=== PATIENT | female | born 1950 | race Caucasian/White ===

== ENCOUNTER → 2023-08-31 09:15 | Outpatient (REF) | payer OTHER, SELFPAY | LOC: HWRAD 09:15 | PROVIDERS: ATTENDING PHYSICIAN Urology; FAMILY PHYSICIAN Internal Medicine | DX: C67.2 Malignant neoplasm of lateral wall of bladder (principal); N32.89 Other specified disorders of bladder; N13.5 Crossing vessel and stricture of ureter without hydronephrosis | CPT/HCPCS: 71260; 74178; Q9967 ==

== ENCOUNTER 2024-02-23 18:18 | Emergency (ER) | payer OTHER, SELFPAY ==
[2024-02-23 18:24] VITALS: BP 160/82
[2024-02-23 18:49] LABS: % Basophils 0.5 % (0-2); % Eosinophils 1.2 % (0-6); % Immature Granulocytes 0.3 % (0-0.5); % Lymphocytes 43.7 % (20.5-51.1); % Monocytes 8.3 % (1.7-9.3); Absolute Eosinophils 0.1 10^3/uL (0-0.7); Absolute Lymphocytes 3.4 10^3/uL (1.2-3.4); Absolute Monocytes 0.7 10^3/uL (0.1-0.6); Absolute Neutrophils 3.6 10^3/uL (1.4-6.5); Hematocrit 39.4 % (37.0-47.0); Hemoglobin 13.2 g/dL (12.0-16.0); Mean Corp Hgb Conc. 33.5 g/dL (33.0-37.0); Mean Corpuscular Hgb 26.9 pg (27.0-31.0); Mean Corpuscular Volume 80.4 fL (81.0-99.0); Mean Platelet Volume 9.6 fL (7.4-10.4); Nucleated Red Blood Cells % 0 %; Platelet Count 259 10^3/uL (130-400); White Blood Cell Count 7.8 10^3/uL (4.8-10.8)
[2024-02-23 18:57] LABS: ALT (SGPT) 16 U/L (0-35); AST (SGOT) 21 U/L (14-36); Albumin 4.4 g/dl (3.5-5.0); Alkaline Phosphatase 86 U/L (38-126); Blood Urea Nitrogen 15 mg/dl (7-17); Calcium 9.7 mg/dl (8.4-10.2); Carbon Dioxide 22 mmol/L (22-30); Chloride 105 mmol/L (98-107); Glucose 140 mg/dl (70-99); Potassium 4.4 mmol/L (3.5-5.1); Sodium 144 mmol/L (135-145); Total Bilirubin 0.1 mg/dl (0.2-1.3); Total Protein 7.5 g/dl (6.3-8.2); eGFR > 60.00
[2024-02-23 19:08] LABS: Troponin I < 0.012 ng/ml
[2024-02-23 21:47] VITALS: BP 170/79
[2024-02-23 22:01] LABS: Urine Albumin Negative (Neg - Trace); Urine Bilirubin Negative (Negative); Urine Character Clear (Clear); Urine Color Yellow; Urine Glucose Negative (Negative); Urine Ketone Negative (Negative); Urine Leukocyte Negative (Negative); Urine Nitrite Positive (Negative); Urine Occult Blood Trace (Negative); Urine Urobilinogen Negative (Neg - 1+); Urine pH 6.5 (5.0-9.0)
[2024-02-23 22:06] LABS: Urine Squamous Cell 0-2 /LPF (Few)
[2024-02-23 22:08] LABS: Urine Red Blood Cell 0-2 /HPF (0-2)
[2024-02-23 22:09] LABS: Urine Bacteria Moderate (Negative)
[2024-02-23 22:32] VITALS: BP 145/83
--- NOTE | 2024-02-23 23:20 | ED.GENMED ---
History of Present Illness
General
Chief Complaint: Chest Pain
Source: patient and family
Exam Limitations: none
Time Seen by Provider: 02/23/24 21:21
History of Present Illness
History of Present Illness:
Patient to ED with complaint of chest pain and cough for the past few days. No fever/chills. No SOB. Brought to ED by grandson for eval
Past History
Past History
ED Past Medical History: Cancer (Bladder cancer), GERD, HTN, Hypercholesterolemia and Other (Kidney stones)
ED Past Surgical History: Urological
Social History
Tobacco: Non-smoker
Alcohol: None
Drug: None
Living: with family
Employment: Retired
Phy Exam
General Physical Exam
General Presentation: well appearing and no apparent distress
General age: appears stated age
General Skin: warm and dry
General Habitus: normal
General Mental: alert
ENT Exam
ENT Exam: EOMI, TM's normal, pharynx normal, neck supple, normocephalic and swallowing well
Eye Exam
Eye Exam: PERRL, EOMI, conjunctiva normal and globe normal
Cardiovascular Exam
Cardiovascular Exam: regular rate/rhythm and no edema
Pulmonary Exam
Pulmonary Exam: lungs clear and no respiratory distress
Neurological Exam
Neurological Exam: alert, CN II-XII intact, no motor deficits, no sensory deficits and speech normal
Musculoskeletal Exam
Musculoskeletal Exam: full ROM and neuro vasc intact
Skin Exam
Skin Exam: normal color, warm/dry and no rash
Psychiatric Exam
Psychiatric Exam: normal mood/affect
Scores
Heart Score for Chest Pain Patients
STEMI patient?: Not applicable
Course
Orders/Labs/Results
Orders:
Orders
02/23/24 18:20
Electrocardiogram (*1) Urgent
Reason for Study: Chest Pain
EKG- Treatment ONCE
02/23/24 18:33
Complete Blood Count/With Diff Urgent
Comprehensive Metabolic Panel Urgent
Troponin I Urgent
02/23/24 21:54
Urinalysis Reflex To Culture Urgent
Date Specimen was Collected: 02/23/24
Time Specimen was Collected: 21:52
Urine Microscopic Reflex Cult Urgent
Urine Culture Urgent
GLORIA Source: U
Specimen Description:
Date Specimen was Collected: 02/23/24
Time Specimen was Collected: 21:52
02/23/24 21:55
CT Head W/o Iv Contrast Urgent
Comment:
Reason For Exam: dizziness
02/23/24 22:01
CXR2 [CR Chest - 2 Views ] Urgent
Comment:
Reason For Exam: cp
02/23/24 23:17
Meclizine [Antivert] 25 mg PO NOW STA
Abnormal Lab Results
02/23/24 02/23/24
18:33 21:54
MCV 80.4 L fL
(81.0-99.0)
MCH 26.9 L pg
(27.0-31.0)
Absolute Monos (auto) 0.7 H 10^3/uL
(0.1-0.6)
Glucose 140 H mg/dl
(70-99)
Total Bilirubin 0.1 L mg/dl
(0.2-1.3)
Ur Occult Blood Reflex Trace A
(Negative)
Urine Nitrite (Reflex) Positive A
(Negative)
Urine Bacteria (Reflex) Moderate A
(Negative)
02/23/24 18:33
02/23/24 18:33
Vital Signs
Initial and Last Documented VS:
Initial Vital Signs
Temp Pulse Resp BP Pulse Ox
98.1 F 89 18 160/82 100
02/23/24 18:24 02/23/24 18:24 02/23/24 18:24 02/23/24 18:24 02/23/24 18:24
Last Documented Vital Signs
Temp Pulse Resp BP Pulse Ox
98.1 F 64 19 129/68 99
02/23/24 18:24 02/23/24 23:53 02/23/24 23:53 02/23/24 23:53 02/23/24 23:53
*Radiology
Radiology exam reviewed: radiology read reviewed
*Pulse Oximetry
Patient hypoxic: no
*Critical Care Note
Total Time (30-74mins, 75-104mins- exclusive of procedures): Not Applicable
ED Attending Note
-
Portions of this chart may have been created with voice recognition software.� Occasional wrong word or��sound alike� substitutions may have occurred due to the inherent limitations of voice recognition software.
Discharge Plan
Departure
Patient Disposition: Home (Routine Discharge)
Date of Disposition: 02/23/24
Time of Disposition: 23:17
Patient with high blood pressure during this ER visit?: No
Condition: Good
Covid-19: Not Applicable
Discharge Problem:
Dizziness
Instructions: Dizziness
Prescriptions:
New
meclizine 25 mg tablet
25 mg PO TID PRN (Reason: dizziness) Qty: 12 0RF
No Action
atorvastatin 10 MG tablet
10 mg PO DAILY
Patient Comments:
with language line
pantoprazole 40 MG tablet,delayed release (DR/EC)
40 mg PO DAILY
Patient Comments:
with language line
acetaminophen 500 mg Tablet
500 mg PO Q6H PRN (Reason: mild pain)
Referrals:
Saud Dennis MD [Family Provider] - Tomorrow
Interventions
Interventions:
*Risk Screen - Suicide Last Done: 02/23/24 18:24
*General Assessment Last Done: 02/23/24 18:24
*Neglect/Abuse Screening Last Done: 02/23/24 18:24
*ED COVID-19 Vaccine History Last Done: 02/23/24 18:24
*Nursing Disposition Last Done: 02/23/24 23:53
ED- Cardiac Assessment Last Done: 02/23/24 21:55
Discharge Date and Time
Discharge Date/Time: 02/23/24 23:54
Print Language: Emirati
[2024-02-23] MEDS: ANTIVERT 25 MG PO (23:26)
[2024-02-23 23:51] VITALS: BP 129/68
[2024-02-23 23:53] VITALS: BP 129/68
== END 2024-02-23 23:54 | disposition home or self-care (01) ==
LOC: EMR 18:18
PROVIDERS: Emergency Medicine; Nurse Practitioner; EMERGENCY PHYSICIAN Emergency Medicine; FAMILY PHYSICIAN Internal Medicine
DX: R42 Dizziness and giddiness (principal)
CPT/HCPCS: 99285; 70450; 71046; 80053; 81003; 81015; 84484; 85025; 87086; 93005

== ENCOUNTER → 2024-02-29 13:43 | Outpatient (REF) | payer OTHER, MEDICARE, SELFPAY | LOC: HWRAD 13:43 | PROVIDERS: ATTENDING PHYSICIAN Urology; FAMILY PHYSICIAN Internal Medicine | DX: R31.0 Gross hematuria (principal); N28.1 Cyst of kidney, acquired; N13.5 Crossing vessel and stricture of ureter without hydronephrosis; N32.89 Other specified disorders of bladder | CPT/HCPCS: 71260; 74170; Q9967 ==

== ENCOUNTER → 2024-09-05 07:58 | Outpatient (REF) | payer MEDICARE, OTHER, SELFPAY | LOC: RAD 07:58 | PROVIDERS: ATTENDING PHYSICIAN Urology; FAMILY PHYSICIAN Internal Medicine | DX: N13.5 Crossing vessel and stricture of ureter without hydronephrosis (principal) | CPT/HCPCS: 71260; 74170; Q9967 ==

== ENCOUNTER → 2024-09-29 09:55 | Outpatient (REF) | payer MEDICARE, OTHER, SELFPAY | LOC: HWRAD 09:55 | PROVIDERS: ATTENDING PHYSICIAN Urology; FAMILY PHYSICIAN Internal Medicine | DX: C67.2 Malignant neoplasm of lateral wall of bladder (principal); R22.1 Localized swelling, mass and lump, neck | CPT/HCPCS: 76536 ==

== ENCOUNTER → 2024-10-04 07:49 | Outpatient (REF) | payer MEDICARE, OTHER, SELFPAY | LOC: MRI 07:49 | PROVIDERS: ATTENDING PHYSICIAN Urology; FAMILY PHYSICIAN Internal Medicine | DX: K76.9 Liver disease, unspecified (principal); C67.2 Malignant neoplasm of lateral wall of bladder | CPT/HCPCS: 74183; A9575 ==

== ENCOUNTER 2024-10-17 11:56 | Emergency (ER) | payer MEDICARE, OTHER, SELFPAY ==
[2024-10-17 12:02] VITALS: BP 152/89
[2024-10-17 12:57] LABS: COVID-19 Antigen Negative (Negative)
--- NOTE | 2024-10-17 16:22 | ED.GENMED ---
History of Present Illness
General
Chief Complaint: Cold/Flu/URI Symptoms
Source: patient
Exam Limitations: none
Time Seen by Provider: 10/17/24 15:57
Nursing documentation reviewed up to this point in time: agreed with
History of Present Illness
History of Present Illness:
Patient is a 74-year-old female history of bladder cancer, pulmonary embolism on Eliquis presents to the ER for evaluation of cough. Patient has had intermittent cough for the past 2 months however over the past 1 week it has gotten progressively
worse. She is now unable to sleep at that does complain of shortness of breath. She also feels discomfort in her chest region from much.
No other sick contacts at home. She denies any fever or chills.
She does not smoke
Past History
Past History
ED Past Medical History: Cancer (Bladder cancer), GERD, HTN, Hypercholesterolemia and Other (Kidney stones)
ED Past Surgical History: Urological
Social History
Tobacco: Non-smoker
Alcohol: None
Drug: None
Living: with family
Employment: Retired
Review of Systems
Review of Systems
Allergies reviewed?: Yes
Other source history: family
All Other Systems: ROS reviewed and negative except as documented in HPI and ROS
Phy Exam
General Physical Exam
General Presentation: no apparent distress
General age: appears stated age
General Skin: warm and dry
General Habitus: elderly
General Mental: alert
General Hydration: appears well hydrated
Cardiovascular Exam
Cardiovascular Exam: regular rate/rhythm, no murmur and normal peripheral pulses
Pulmonary Exam
Pulmonary Exam: lungs clear and no respiratory distress
Neurological Exam
Neurological Exam: alert and oriented x3
Musculoskeletal Exam
Musculoskeletal Exam: full ROM
Skin Exam
Skin Exam: normal color and warm/dry
Psychiatric Exam
Psychiatric Exam: normal mood/affect
Course
Orders/Labs/Results
Orders:
Orders
10/17/24 12:06
Electrocardiogram (*1) Urgent
Reason for Study: Shortness of Breath
10/17/24 12:07
EKG- Treatment ONCE
10/17/24 12:22
COVID-19 Antigen Urgent
Source: Nasal Swab
INF RAPID [Influenza A+B Rapid Molecular] Urgent
GLORIA Source: Nasal Swab
Specimen Description:
10/17/24 16:22
Albuterol Nebs [Ventolin Nebules] 2.5 mg INH R NOW STA
10/17/24 16:57
Complete Blood Count/With Diff Urgent
Comprehensive Metabolic Panel Urgent
Troponin I Urgent
10/17/24 18:01
D-Dimer Urgent
10/17/24 19:07
CT Chest PE Study Urgent
Comment:
Reason For Exam: cough /sob
10/17/24 20:50
Doxycycline [Vibramycin] 100 mg PO NOW STA
10/17/24 20:54
Dexamethasone Pf [Decadron] 10 mg PO NOW STA
Abnormal Lab Results
10/17/24 10/17/24
16:57 18:01
Hgb 11.7 L g/dL
(12.0-16.0)
Hct 34.7 L %
(37.0-47.0)
MCV 79.4 L fL
(81.0-99.0)
MCH 26.8 L pg
(27.0-31.0)
D-Dimer 0.89 H ug/mlFEU
(0.00-0.50)
Chloride 109 H mmol/L
(98-107)
10/17/24 16:57
10/17/24 16:57
Vital Signs
Initial and Last Documented VS:
Initial Vital Signs
Temp Pulse Resp BP Pulse Ox
98.8 F 80 22 152/89 97
10/17/24 12:02 10/17/24 12:02 10/17/24 12:02 10/17/24 12:02 10/17/24 12:02
Last Documented Vital Signs
Temp Pulse Resp BP Pulse Ox
98.1 F 67 18 110/80 95
10/17/24 19:48 10/17/24 19:48 10/17/24 19:48 10/17/24 19:48 10/17/24 19:49
Certified Orthotist Practice Manager consulted with Physician
Certified Orthotist Practice Manager consulted with physician?: Yes (noh )
MDM/Problems Addressed
Differential Diagnosis Includes:
Not limited to viral syndrome, bronchitis, pneumonia
MDM/Problems Addressed:
As documented patient is a 74-year female with history of bladder cancer PE presents with cough for the past month getting worse. She does complain of minimal shortness of breath. CAT scan shows near complete resolution of previously seen
bilateral PE increased left lower lobe basilar consolidation may reflect atelectasis and or pneumonia. With presenting symptoms of cough as discussed ED physician will treat for pneumonia with doxycycline. Patient is well-appearing nonhypoxic and
afebrile stable for discharge home. Discussed close outpatient follow-up.
*Pulse Oximetry
SaO2: 97
Oxygen Mode of Delivery: Room air
Patient hypoxic: no (97%ra)
*Critical Care Note
Total Time (30-74mins, 75-104mins- exclusive of procedures): Not Applicable
ED Attending Note
-
Portions of this chart may have been created with voice recognition software.� Occasional wrong word or��sound alike� substitutions may have occurred due to the inherent limitations of voice recognition software.
Discharge Plan
Departure
Patient Disposition: Home (Routine Discharge)
Date of Disposition: 10/17/24
Time of Disposition: 20:54
Patient with high blood pressure during this ER visit?: Yes
Condition: Fair
Covid-19: Not Applicable
Discharge Problem:
Pneumonia
Instructions: Pneumonia in adults - Discharge instructions
Prescriptions:
New
doxycycline hyclate 100 mg capsule
100 mg PO BID Qty: 14 0RF
No Action
atorvastatin 10 MG tablet
10 mg PO DAILY
Patient Comments:
with language line
pantoprazole 40 MG tablet,delayed release (DR/EC)
40 mg PO DAILY
Patient Comments:
with language line
acetaminophen 500 mg Tablet
500 mg PO Q6H PRN (Reason: mild pain)
meclizine 25 mg tablet
25 mg PO TID PRN (Reason: dizziness) Qty: 12 0RF
Referrals:
Saud Dennis MD [Family Provider, Internal Medicine]
Activity Restrictions/Additional Instructions:
As discussed take antibiotic twice a day for the next week for pneumonia.
Follow-up closely with family doctor next several days for reevaluation.
Your CAT scan showed improvement of your blood clots in your lung however is important that you stay on your blood thinner medication as previously instructed. Return if any worsening of symptoms.
Interventions
Interventions:
*Risk Screen - Suicide Last Done: 10/17/24 12:02
*General Assessment Last Done: 10/17/24 17:12
*Neglect/Abuse Screening Last Done: 10/17/24 12:02
*ED- Fall Risk Assessment Last Done: 10/17/24 17:12
*ED COVID-19 Vaccine History Last Done: 10/17/24 17:14
*Nursing Disposition Last Done: 10/17/24 21:07
ED- Pulmonary Assessment Last Done: 10/17/24 17:04
Discharge Date and Time
Discharge Date/Time: 10/17/24 21:08
Print Language: Azerbaijani
[2024-10-17] MEDS: VENTOLIN NEBULES 2.5 MG INH (16:39)
[2024-10-17 17:09] LABS: % Eosinophils 2.3 % (0-6); % Immature Granulocytes 0.5 % (0-0.5); % Lymphocytes 27.2 % (20.5-51.1); % Monocytes 8.4 % (1.7-9.3); % Neutrophils 60.6 % (42.2-75.2); Absolute Basophils 0.1 10^3/uL (0-0.2); Absolute Eosinophils 0.1 10^3/uL (0-0.7); Absolute Lymphocytes 1.7 10^3/uL (1.2-3.4); Absolute Monocytes 0.5 10^3/uL (0.1-0.6); Absolute Neutrophils 3.7 10^3/uL (1.4-6.5); Hematocrit 34.7 % (37.0-47.0); Hemoglobin 11.7 g/dL (12.0-16.0); Mean Corp Hgb Conc. 33.7 g/dL (33.0-37.0); Mean Corpuscular Hgb 26.8 pg (27.0-31.0); Mean Corpuscular Volume 79.4 fL (81.0-99.0); Mean Platelet Volume 9.6 fL (7.4-10.4); Nucleated Red Blood Cells % 0 %; Platelet Count 245 10^3/uL (130-400); Red Blood Cell Count 4.37 10^6/uL (4.20-5.40); Red Cell Dist. Width 13.3 % (11.5-14.5); White Blood Cell Count 6.1 10^3/uL (4.8-10.8)
[2024-10-17 17:20] LABS: ALT (SGPT) 12 U/L (0-35); AST (SGOT) 20 U/L (14-36); Albumin 4.1 g/dl (3.5-5.0); Alkaline Phosphatase 97 U/L (38-126); Blood Urea Nitrogen 16 mg/dl (7-17); Calcium 9.2 mg/dl (8.4-10.2); Carbon Dioxide 24 mmol/L (22-30); Chloride 109 mmol/L (98-107); Glucose 95 mg/dl (70-99); Potassium 4.5 mmol/L (3.5-5.1); Sodium 139 mmol/L (135-145); Total Bilirubin 0.4 mg/dl (0.2-1.3); Total Protein 7.5 g/dl (6.3-8.2); eGFR > 60.00
[2024-10-17 17:30] LABS: Troponin I < 0.012 ng/ml
[2024-10-17 18:21] LABS: D-Dimer 0.89 ug/mlFEU (0.00-0.50)
[2024-10-17 19:47] VITALS: BP 110/80
[2024-10-17 19:48] VITALS: BP 110/80
[2024-10-17 19:49] VITALS: BMI 29.5
[2024-10-17] MEDS: VIBRAMYCIN 100 MG PO (21:03)
[2024-10-17] MEDS: DECADRON 10 MG PO (21:04)
== END 2024-10-17 21:08 | disposition home or self-care (01) ==
LOC: EMR 11:56
PROVIDERS: Student in an Organized Health Care Education/Training Program; EMERGENCY PHYSICIAN Emergency Medicine; FAMILY PHYSICIAN Internal Medicine
DX: J18.9 Pneumonia, unspecified organism (principal); I10 Essential (primary) hypertension; E78.00 Pure hypercholesterolemia, unspecified; Z86.711 Personal history of pulmonary embolism; Z85.51 Personal history of malignant neoplasm of bladder; Z79.01 Long term (current) use of anticoagulants; Z11.52 Encounter for screening for COVID-19
CPT/HCPCS: 94640; 99284; 71275; 80053; 84484; 85025; 85379; 87502; 87811; 93005; Q9967

== ENCOUNTER 2024-11-04 08:00 | Outpatient (REF) | payer MEDICARE, OTHER, SELFPAY ==
[2024-11-04] VITALS (11 sets, daily range): BP systolic 65–148; BP diastolic 65–78
[2024-11-04 08:29] LABS: Hematocrit 38.5 % (37.0-47.0); Hemoglobin 12.1 g/dL (12.0-16.0); Mean Corp Hgb Conc. 31.4 g/dL (33.0-37.0); Mean Corpuscular Volume 85.0 fL (81.0-99.0); Platelet Count 225 10^3/uL (130-400); Red Cell Dist. Width 14.5 % (11.5-14.5)
[2024-11-04 08:34] LABS: INR 0.98; PT 13.3 Sec (11.4-14.6)
== END 2024-11-04 13:05 | disposition home or self-care (01) ==
LOC: RADI 08:00
PROVIDERS: ATTENDING PHYSICIAN Internal Medicine Hematology & Oncology; FAMILY PHYSICIAN Internal Medicine; REFERRING PHYSICIAN Physician Assistant
DX: C78.7 Secondary malignant neoplasm of liver and intrahepatic bile duct (principal); C67.1 Malignant neoplasm of dome of bladder; D68.8 Other specified coagulation defects
CPT/HCPCS: 36415; 47000; 76942; 85027; 85610; 88307; 88333; 88341; 99152

== ENCOUNTER → 2024-11-23 14:36 | Outpatient (REF) | payer MEDICARE, OTHER, SELFPAY ==
[2024-11-23 14:14] LABS: Hematocrit 39.1 % (37.0-47.0); Hemoglobin 12.6 g/dL (12.0-16.0); Mean Corp Hgb Conc. 32.2 g/dL (33.0-37.0); Mean Corpuscular Volume 83.0 fL (81.0-99.0); Platelet Count 254 10^3/uL (130-400); Red Cell Dist. Width 13.8 % (11.5-14.5)
[2024-11-23 15:52] LABS: ALT (SGPT) 20 U/L (0-35); AST (SGOT) 27 U/L (14-36); Albumin 4.4 g/dl (3.5-5.0); Alkaline Phosphatase 132 U/L (38-126); Blood Urea Nitrogen 20 mg/dl (7-17); Calcium 8.9 mg/dl (8.4-10.2); Carbon Dioxide 28 mmol/L (22-30); Chloride 104 mmol/L (98-107); Glucose 93 mg/dl (70-99); Potassium 4.5 mmol/L (3.5-5.1); Sodium 140 mmol/L (135-145); Total Protein 7.7 g/dl (6.3-8.2); eGFR > 60.00
[2024-11-23 16:08] LABS: Free T3 4.41 pg/ml (2.77-5.27)
[2024-11-23 16:22] LABS: TSH 0.78 uIU/ml (0.47-4.68)
== END ==
LOC: OIDL 14:36
PROVIDERS: ATTENDING PHYSICIAN Internal Medicine Hematology & Oncology
DX: C67.1 Malignant neoplasm of dome of bladder (principal); R91.1 Solitary pulmonary nodule; E55.9 Vitamin D deficiency, unspecified; C78.7 Secondary malignant neoplasm of liver and intrahepatic bile duct; I26.99 Other pulmonary embolism without acute cor pulmonale; R53.82 Chronic fatigue, unspecified
CPT/HCPCS: 80053; 84439; 84443; 84481; 85025

== ENCOUNTER → 2024-11-28 08:39 | Outpatient (REF) | payer MEDICARE, OTHER, SELFPAY ==
[2024-11-28] VITALS (7 sets, daily range): BP systolic 74–138; BP diastolic 59–77
[2024-11-28] MEDS: LEVAQUIN 500 MG PO (09:53)
== END ==
LOC: RADI 08:39
PROVIDERS: ATTENDING PHYSICIAN Internal Medicine Hematology & Oncology; FAMILY PHYSICIAN Internal Medicine
DX: C67.1 Malignant neoplasm of dome of bladder (principal); C78.7 Secondary malignant neoplasm of liver and intrahepatic bile duct; I82.C11 Acute embolism and thrombosis of right internal jugular vein
CPT/HCPCS: 36005; 36561; 36598; 76937; 77001; 99152; 99153; C1769; C1788

== ENCOUNTER → 2024-12-05 15:36 | Outpatient (REF) | payer MEDICARE, OTHER, SELFPAY ==
[2024-12-05 11:38] LABS: Hematocrit 36.9 % (37.0-47.0); Hemoglobin 11.7 g/dL (12.0-16.0); Mean Corp Hgb Conc. 31.7 g/dL (33.0-37.0); Mean Corpuscular Volume 81.8 fL (81.0-99.0); Platelet Count 237 10^3/uL (130-400); Red Cell Dist. Width 13.7 % (11.5-14.5)
[2024-12-05 12:58] LABS: ALT (SGPT) 17 U/L (0-35); AST (SGOT) 29 U/L (14-36); Albumin 3.8 g/dl (3.5-5.0); Alkaline Phosphatase 143 U/L (38-126); Blood Urea Nitrogen 14 mg/dl (7-17); Calcium 8.6 mg/dl (8.4-10.2); Carbon Dioxide 25 mmol/L (22-30); Chloride 105 mmol/L (98-107); Glucose 89 mg/dl (70-99); Potassium 4.4 mmol/L (3.5-5.1); Sodium 138 mmol/L (135-145); Total Protein 6.9 g/dl (6.3-8.2); eGFR > 60.00
== END ==
LOC: OIDL 15:36
PROVIDERS: ATTENDING PHYSICIAN Internal Medicine Hematology & Oncology
DX: C67.1 Malignant neoplasm of dome of bladder (principal); R91.1 Solitary pulmonary nodule; E55.9 Vitamin D deficiency, unspecified; C78.7 Secondary malignant neoplasm of liver and intrahepatic bile duct; I26.99 Other pulmonary embolism without acute cor pulmonale
CPT/HCPCS: 80053; 85025

== ENCOUNTER → 2024-12-19 10:07 | Outpatient (REF) | payer MEDICARE, OTHER, SELFPAY ==
[2024-12-19 10:33] LABS: Hematocrit 32.3 % (37.0-47.0); Hemoglobin 10.8 g/dL (12.0-16.0); Mean Corp Hgb Conc. 33.4 g/dL (33.0-37.0); Mean Corpuscular Volume 79.4 fL (81.0-99.0); Nucleated Red Blood Cells % 0.5 %; Platelet Count 308 10^3/uL (130-400); Red Cell Dist. Width 14.9 % (11.5-14.5)
[2024-12-19 10:57] LABS: ALT (SGPT) 39 U/L (0-35); AST (SGOT) 37 U/L (14-36); Albumin 3.6 g/dl (3.5-5.0); Alkaline Phosphatase 123 U/L (38-126); Blood Urea Nitrogen 15 mg/dl (7-17); Calcium 8.4 mg/dl (8.4-10.2); Carbon Dioxide 21 mmol/L (22-30); Chloride 91 mmol/L (98-107); Glucose 127 mg/dl (70-99); Potassium 4.9 mmol/L (3.5-5.1); Sodium 119 mmol/L (135-145); Total Protein 6.7 g/dl (6.3-8.2); eGFR > 60.00
== END ==
LOC: OIDL 10:07
PROVIDERS: ATTENDING PHYSICIAN Internal Medicine Hematology & Oncology
DX: C67.1 Malignant neoplasm of dome of bladder (principal); R91.1 Solitary pulmonary nodule; E55.9 Vitamin D deficiency, unspecified; C78.7 Secondary malignant neoplasm of liver and intrahepatic bile duct; I26.99 Other pulmonary embolism without acute cor pulmonale; G62.0 Drug-induced polyneuropathy
CPT/HCPCS: 80053; 85025

== ENCOUNTER → 2024-12-27 15:21 | Outpatient (REF) | payer MEDICARE, OTHER, SELFPAY ==
[2024-12-27 09:31] LABS: Hematocrit 35.8 % (37.0-47.0); Hemoglobin 11.6 g/dL (12.0-16.0); Mean Corp Hgb Conc. 32.4 g/dL (33.0-37.0); Mean Corpuscular Volume 82.1 fL (81.0-99.0); Platelet Count 200 10^3/uL (130-400); Red Cell Dist. Width 17.1 % (11.5-14.5)
[2024-12-27 10:41] LABS: ALT (SGPT) 58 U/L (0-35); AST (SGOT) 42 U/L (14-36); Albumin 3.6 g/dl (3.5-5.0); Alkaline Phosphatase 114 U/L (38-126); Blood Urea Nitrogen 17 mg/dl (7-17); Calcium 8.3 mg/dl (8.4-10.2); Carbon Dioxide 22 mmol/L (22-30); Chloride 109 mmol/L (98-107); Glucose 96 mg/dl (70-99); Potassium 4.3 mmol/L (3.5-5.1); Sodium 137 mmol/L (135-145); Total Protein 6.5 g/dl (6.3-8.2); eGFR > 60.00
[2024-12-27 10:56] LABS: Free T3 3.77 pg/ml (2.77-5.27)
[2024-12-27 11:10] LABS: TSH 1.41 uIU/ml (0.47-4.68)
== END ==
LOC: OIDL 15:21
PROVIDERS: ATTENDING PHYSICIAN Internal Medicine Hematology & Oncology
DX: C67.1 Malignant neoplasm of dome of bladder (principal); R91.1 Solitary pulmonary nodule; E55.9 Vitamin D deficiency, unspecified; C78.7 Secondary malignant neoplasm of liver and intrahepatic bile duct; I26.99 Other pulmonary embolism without acute cor pulmonale; G62.0 Drug-induced polyneuropathy; R53.82 Chronic fatigue, unspecified
CPT/HCPCS: 80053; 84439; 84443; 84481; 85025

== ENCOUNTER → 2024-12-29 10:25 | Outpatient (REF) | payer MEDICARE, OTHER, SELFPAY | LOC: RAD 10:25 | PROVIDERS: ATTENDING PHYSICIAN Nurse Practitioner Adult Health; FAMILY PHYSICIAN Internal Medicine | DX: C67.1 Malignant neoplasm of dome of bladder (principal); R91.1 Solitary pulmonary nodule; E55.9 Vitamin D deficiency, unspecified | CPT/HCPCS: 71046; 71275; 80053; 83880; Q9967 ==

== ENCOUNTER 2024-12-29 21:03 | Inpatient (IN) | payer MEDICARE, OTHER, SELFPAY ==
[2024-12-29 17:09] VITALS: BP 128/81
[2024-12-29 17:21] VITALS: BP 133/78
[2024-12-29 18:00] VITALS: BP 130/73
--- NOTE | 2024-12-29 18:00 | ED.GENMED ---
History of Present Illness
General
Chief Complaint: Breathing Problem
Source: patient and family
Exam Limitations: none
Time Seen by Provider: 12/29/24 17:49
History of Present Illness
History of Present Illness:
74yoF with a history of metastatic bladder cancer and hyperlipidemia presenting with her family members for evaluation of shortness of breath. Patient has been short of breath primarily with exertion for the past 10 days or so. Symptoms have been
worsening over the past 48 hours. She was sent for a CTA of her chest earlier today which showed bilateral pulmonary emboli. No evidence of heart strain was noted. She was sent to the ED for evaluation. Patient denies any calf pain, leg
swelling, chest pain, dizziness, syncope. She was on Eliquis up until about 3 months ago when she had a liver biopsy. She is not currently on anticoagulation. She just finished her third round of chemotherapy earlier today.
Past History
Past History
ED Past Medical History: Cancer (Bladder cancer), GERD, HTN, Hypercholesterolemia and Other (Kidney stones)
ED Past Surgical History: Urological
Social History
Tobacco: Non-smoker
Alcohol: None
Drug: None
Living: with family
Employment: Retired
Phy Exam
Physical Exam
Physical Exam:
Chronically ill-appearing, no acute distress
General Physical Exam
General Presentation: no apparent distress
General Skin: warm and dry
General Habitus: normal
General Mental: alert
ENT Exam
ENT Exam: normocephalic
Cardiovascular Exam
Cardiovascular Exam: regular rate/rhythm and no edema
Pulmonary Exam
Pulmonary Exam: lungs clear, no respiratory distress, no rales, no crackles, no rhonchi and no wheezing
Neurological Exam
Neurological Exam: alert
[place] Coma Scale
Eye Opening: Spontaneous
Verbal Response: Oriented
Motor Response: Obeys Commands
GCS Total Score: 15
Skin Exam
Skin Exam: normal color and warm/dry
Psychiatric Exam
Psychiatric Exam: normal mood/affect
Scores
Heart Failure Risk
Heart Failure Risk Score: Not Applicable
Course
Orders/Labs/Results
Orders:
Orders
12/29/24 17:08
Electrocardiogram (*1) Urgent
Reason for Study: Shortness of Breath
EKG- Treatment ONCE
12/29/24 17:59
Cardiac Monitoring- Treatment ONCE
12/29/24 18:00
Cardiac Monitoring- Treatment ONCE
12/29/24 18:02
Heparin 6,700 units IV NOW STA
Nursing to Place Non Medication Order As Directed
Physician Order: PTT 6 hours after initial start of Heparin infusion
12/29/24 18:15
Heparin 34241 Units/250 ml 25,000 units in 250 ml IV PER PROTOCOL
Weight to be used for heparin protocol in kilograms (kg):: 84.3
Protocol:: DVT/PE
PTT Goal Range to be used:: PTT 73 to 111 seconds
Order type:: Initial
INITIAL Infusion Dose (UNITS/KG/hr) & then follow protocol:: 18 units/kg/hr
Infusion Dose in UNITS/hr & then follow protocol (UNITS/hr):: 1,500
INFUSION RATE in mL/hr & then follow protocol (mL/hr):: 15
For DVT/PE algorithm, re-bolus for low PTT?: Yes
PTT less than or equal to 64 seconds:: Re-bolus 80 units/kg (max 10,000units). Increase by 300 units/hr
(+ 3mL/hr)
PTT 64.1 to 72.9 seconds:: Re-bolus 40 units/kg (max 5,000 units). Increase by 200 units/hr
(+ 2mL/hr)
PTT 73 to 111 seconds:: Target Range. No change in rate.
PTT 111.1 to 130.9 seconds:: Decrease rate by 200 units/hr (- 2 mL/hr)
PTT 131 to 199.9 seconds:: HOLD for 1 hr. Then decrease by 300 units/hr (- 3mL/hr)
PTT greater than or equal to 200 seconds:: HOLD for 2 hrs & Notify Provider. Then decrease by 300 units/hr
(- 3mL/hr)
Lab follow-up:: Each change, PTT q6h until 2 consecutive are therapeutic. Then
PTT daily.
12/29/24 18:17
Complete Blood Count/With Diff Urgent
Comprehensive Metabolic Panel Urgent
PTT Urgent
Comment: Obtain baseline before beginning heparin infusion if not already collected
Troponin I Urgent
12/29/24 20:31
Heparin 6,700 units IV PRN PRN
12/29/24 20:32
Heparin 3,400 units IV PRN PRN
12/29/24 20:49
Admit/Transfer Patient As Directed
Co-Sign Provider:
Level of Care: Inpatient admission
Assign to:: Telemetry
Physician / Group: marleen siu
Diagnosis: hypoxic resp insuff 2/2 b/l PE, bladder ca mets liver/hepatic duct
Reason for Telemetry: Arrhythmia
Date to Stop Telemetry: 01/01/25
Time to Stop Telemetry: 11:00
Reason for Hospitalization: hypoxic resp insuff 2/2 b/l PE, bladder ca mets liver/hepatic duct
Expected length of stay greater than two midnights?: Yes
ELOS- Estimated Length of Stay in days: 4
I certify the patient meets the requirements for IP care: Yes
Code Status As Directed
Resuscitation Status: Full Code
12/29/24 20:50
PRN Pain Medication Management As Directed
May give lesser potent ordered pain med per pt: Yes
preference::
Protocol:: Medication orders for pain may be administered in a
manner that supports deferring to patient preference
when the pt is:
- Requesting an ordered lesser potent pain medication.
Least to most potent pain medications are defined
as: acetaminophen < NSAID < tramadol < opioids
(morphine, oxycodone, hydromorphone).
- Requesting a lesser dose of the same medication IF
ORDERED.
- Requesting a less intrusive route of administration
if both routes are prescribed by the provider (PO <
IV).
01/01/25 11:00
DC Protocol for Telemetry ONCE
Abnormal Lab Results
12/29/24
18:17
RBC 4.14 L 10^6/uL
(4.20-5.40)
Hgb 10.7 L g/dL
(12.0-16.0)
Hct 33.6 L %
(37.0-47.0)
MCH 25.8 L pg
(27.0-31.0)
MCHC 31.8 L g/dL
(33.0-37.0)
RDW 17.2 H %
(11.5-14.5)
Absolute Monos (auto) 0.7 H 10^3/uL
(0.1-0.6)
Lymphocytes % 16.9 L %
(20.5-51.1)
Monocytes % 9.6 H %
(1.7-9.3)
Sodium 134 L mmol/L
(135-145)
Chloride 108 H mmol/L
(98-107)
Carbon Dioxide 21 L mmol/L
(22-30)
BUN 18 H mg/dl
(7-17)
Glucose 109 H mg/dl
(70-99)
AST 49 H U/L
(14-36)
ALT 62 H U/L
(0-35)
Total Protein 6.2 L g/dl
(6.3-8.2)
Albumin 3.4 L g/dl
(3.5-5.0)
12/29/24 18:17
12/29/24 18:17
Vital Signs
Initial and Last Documented VS:
Initial Vital Signs
Temp Pulse Resp BP Pulse Ox
98.4 F 89 26 128/81 97
12/29/24 17:09 12/29/24 17:09 12/29/24 17:09 12/29/24 17:09 12/29/24 17:09
Last Documented Vital Signs
Temp Pulse Resp BP Pulse Ox
98.6 F 82 21 138/90 95
12/29/24 18:25 12/29/24 18:21 12/29/24 18:21 12/29/24 18:21 12/29/24 18:28
MDM/Problems Addressed
Differential Diagnosis Includes:
74yoF presenting for SOB x 1-2 weeks. Outpatient CTA chest today showed bilateral pulmonary emboli without heart strain. Patient noted to have labored breathing in triage and was placed on 2 L nasal cannula. Patient is resting comfortably on my
assessment and reports feeling much better. BP stable. Differential diagnosis includes but is not limited to: PE, cor pulmonale, no clinical evidence of obstructive shock
Cardiac labs ordered. Troponin 0.034 and new T wave inversions noted in anterior leads. IV heparin ordered and patient admitted for further management.
*Pulse Oximetry
SaO2: 97
Oxygen Mode of Delivery: Room air
Patient hypoxic: no (97%)
*EKG
Interpreted by ED Provider?: Yes
EKG Intrepretation Date: 12/29/24
Heart Rate: 86
Rate: normal
Rhythm: sinus
Sheldon: normal axis
QRS Pattern: normal QRS
Ischemia: non-specific ST changes (ST/T wave changes in anterior leads)
*Critical Care Note
Total Time (30-74mins, 75-104mins- exclusive of procedures): Not Applicable
ED Attending Note
-
Portions of this chart may have been created with voice recognition software.� Occasional wrong word or��sound alike� substitutions may have occurred due to the inherent limitations of voice recognition software.
Discharge Plan
Departure
Patient Disposition: Admit
Date of Disposition: 12/29/24
Time of Disposition: 19:33
Presentation/result/management discussed w/ accepting MD/DO: Hospitalist
Discharge Problem:
Bilateral pulmonary embolism
Interventions
Interventions:
*Risk Screen - Suicide Last Done: 12/29/24 17:09
*General Assessment Last Done: 12/29/24 17:09
*Neglect/Abuse Screening Last Done: 12/29/24 17:09
*ED- Fall Risk Assessment Last Done: 12/29/24 18:30
*ED COVID-19 Vaccine History Last Done: 12/29/24 18:30
ED- Cardiac Assessment Last Done: 12/29/24 18:27
ED- Pulmonary Assessment Last Done: 12/29/24 18:28
[2024-12-29 18:21] VITALS: BP 138/90
[2024-12-29 18:25] LABS: Hematocrit 33.6 % (37.0-47.0); Hemoglobin 10.7 g/dL (12.0-16.0); Mean Corp Hgb Conc. 31.8 g/dL (33.0-37.0); Mean Corpuscular Volume 81.2 fL (81.0-99.0); Nucleated Red Blood Cells % 0 %; Platelet Count 162 10^3/uL (130-400); Red Cell Dist. Width 17.2 % (11.5-14.5)
[2024-12-29 18:39] LABS: APTT 30.0 Sec (23.4-35.0)
[2024-12-29 18:43] LABS: ALT (SGPT) 62 U/L (0-35); AST (SGOT) 49 U/L (14-36); Albumin 3.4 g/dl (3.5-5.0); Alkaline Phosphatase 105 U/L (38-126); Blood Urea Nitrogen 18 mg/dl (7-17); Calcium 8.5 mg/dl (8.4-10.2); Carbon Dioxide 21 mmol/L (22-30); Chloride 108 mmol/L (98-107); Glucose 109 mg/dl (70-99); Potassium 4.3 mmol/L (3.5-5.1); Sodium 134 mmol/L (135-145); Total Protein 6.2 g/dl (6.3-8.2); eGFR > 60.00
[2024-12-29 18:55] LABS: Troponin I 0.034 ng/ml
--- NOTE | 2024-12-29 20:44 | HPS.HSE ---
Addendum entered and electronically signed by Rizwan Rivero DO 12/29/24 21:39:
Patient seen and examined independently. Agree with findings and plan as set forth by ANIBAL Mayes.
Patient is a 74y F with PMH significant for bladder cancer with mets to the liver - currently on chemotherapy - who presents to ED after outpatient CT scan done today showed bilateral pulmonary emboli. Patient has been having recent issues with
shortness of breath - especially with activity. Patient was diagnosed with bilateral pulmonary emboli in August and was started on Eliquis at that time. She took this for about one month. Follow-up CT at that time showed improvement in clot burden
and the Eliquis was discontinued - ? for a liver biopsy. This medication was never resumed thereafter.
Patient completed her third cycle of chemo today.
At the time of my examination she is resting comfortably in no acute distress.
Ass:
Bilateral Pulmonary Emboli
Metastatic Bladder Cancer on Chemotherapy
Benign Hypertension
Anemia of Chronic Disease
Anxiety / Depression
Plan:
Admit for further evaluation and treatment.
IV heparin infusion for now.
Restart OAC prior to discharge - will likely need to remain on this indefinitely.
Follow-up with Oncology as an outpatient for continued care.
Continue usual outpatient medications.
Original Note:
Family Physician
-
Family Physician: Saud Dennis
Chief Complaint
-
Shortness of breath x 2 weeks
History of Present Illness
74-year-old female complaining of shortness of breath over the past 2 weeks. She currently has completed 3 cycles of chemotherapy for metastatic bladder cancer to liver. She had chemotherapy today at [facility]. She has also had bilateral
leg edema and neuropathy since starting chemotherapy. She denies chest pain, fever, chills, palpitations, cough, abdominal pain, nausea, vomiting, diarrhea, urinary symptoms. Her grandson is translating via phone as patient speaks Cape Verdean only
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
vitamin D deficiency, HLD, anxiety, HTN, GERD.
Medical History
Past Medical History
Past Medical History: Reports Other
Additional Past Medical History:
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
solitary pulmonary nodule
bilateral pulmonary embolism August 2024
vitamin D deficiency
HLD
Anxiety
HTN
GERD
Nov,� � Gross hematuria (ICD-10 - R31.0)� �
Nov,� � Bladder mass (ICD-10 - N32.89)� �
Nov,� � Renal cyst (ICD-10 - N28.1)� �
Nov,� � Malignant neoplasm of lateral wall of urinary bladder (ICD-10 - C67.2)� �
August,� � Acquired hydronephrosis (ICD-10 - N13.30)� �
August,� � Acute bilateral obstructive uropathy (ICD-10 - N13.9)� �
August,� � Anemia due to disturbance of hemoglobin synthesis (ICD-10 - D50.9)� �
August,� � Acquired hyperlipoproteinemia (ICD-10 - E78.5)� �
August,� � Acute anxiety (ICD-10 - F41.9)� �
August,� � Acid reflux (ICD-10 - K21.9)� �
August,� � Abdominal cramping (ICD-10 - R10.9)� �
Oct,� � Non-rheumatic tricuspid valve insufficiency (ICD-10 - I36.1)� �
Oct,� � Chronic pulmonary hypertension (ICD-10 - I27.20)� �
Oct,� � Acute mitral insufficiency (ICD-10 - I34.0)� �
Sep,� � Accelerated atrioventricular junctional rhythm (ICD-10 - I49.8)� �
Past Surgical History: Reports Other
Additional Past Surgical History:
radical bladder surgery
cystoscopies
Status post PowerPort October 2024
Cholecystectomy
Hysterectomy
Social History
Unable to obtain full social history at this time due to: Language Barrier
Tobacco: Non-smoker
Alcohol: None
Personal: Single
Living: With Family
Employment: Retired
Family History
Family History: Not pertinent and Other (No family history of cancer)
Allergies / Home Medications
Allergies reflects when Allergies were last updated in [facility].
Home Medications with original date entered in [facility]
Allergy/Medication List:
Allergies
Allergy/AdvReac Type Severity Reaction Status Date / Time
Cephalosporins Allergy Intermediate Rash Verified 11/04/24 08:57
Penicillins Allergy Rash Verified 11/04/24 08:57
vancomycin Allergy Rash Verified 11/04/24 08:57
Home Medications
acetaminophen 500 mg tablet 500 mg PO Q6H PRN mild pain 09/18/22
lorazepam 0.5 mg tablet 0.5 mg PO DAILY PRN anxiety 11/04/24
atorvastatin 10 mg tablet 10 mg PO HS 11/24/24
lidocaine-prilocaine 2.5 %-2.5 % topical cream 1 applic topical ONCE PRN prior to chemo 11/24/24
ondansetron 8 mg disintegrating tablet 8 mg PO Q8H PRN nausea 11/24/24
prochlorperazine maleate 10 mg tablet 10 mg PO Q6H PRN nausea 11/24/24
cholecalciferol (vitamin D3) 50 mcg (2,000 unit) tablet (Vitamin D3) 50 mcg PO DAILY 11/28/24
pantoprazole 40 mg tablet,delayed release 40 mg PO DAILY 11/28/24
valsartan 80 mg tablet 80 mg PO DAILY 12/29/24
Review of Systems
-
History Source: Patient and Family (Grandson via phone daughter at bedside however only speaks Cape Verdean)
Constitutional: Reports Fatigue; Denies Fever
Respiratory: Reports Trouble Breathing; Denies Cough
Cardiac: Denies Chest Pain, Diaphoresis, Palpitations or Syncope
Abdomen/GI: Denies Abdominal Pain, Nausea, Vomiting, Diarrhea or Constipated
: Denies Dysuria, Frequency, Flank Pain or Incontinence
Musculoskeletal: Reports Edema (Chronic + bilateral leg edema with neuropathy due to chemo); Denies Joint Pain
Skin: Denies Itching or Rash
Neurological: Reports Weakness (Chronic due to recent chemo); Denies Dizzy or Headache
Endocrine: Reports No Symptoms
Hematologic/Lymphatic: Reports No Symptoms
Psych: Reports Calm
Physical Exam
Vital Signs
Vital Signs
Temp Pulse Resp BP Pulse Ox
98.6 F 82 21 138/90 95
12/29/24 18:25 12/29/24 18:21 12/29/24 18:21 12/29/24 18:21 12/29/24 18:28
Physical Exam
General: Comfortable and Conversant; No Fever or Chills
HEENT: NormoCephalic, Anicteric, Moist mucous membranes, PERRLA, [place] Conjunctivae, No Ptosis and Oxygen (2 L nasal cannula)
Respiratory: Clear; No Wheezes, Rales or Rhonchi
Cardiac: S1/S2, Regular Rhythm and Peripheral Edema (Chronic + bilateral leg edema with neuropathy due to chemo); No Murmur, Rub or Gallop
Breast: Deferred by me
GI: Soft, Non Tender, Non Distended and Normal Bowel Sounds
Rectal: Deferred by Provider
Genito-urinary: Deferred by me
Musculoskeletal: No Clubbing, No Cyanosis, Edema, Left Lower Extremity (Chronic + bilateral leg edema with neuropathy due to chemo) and Edema, Right Lower Extremity (Chronic + bilateral leg edema with neuropathy due to chemo); No Edema, Left Upper
Extremity or Edema, Right Upper Extremity
Skin: Warm, Dry and Other (Port upper chest wall present); No Rash
Neuro: AO x 3 (Cape Verdean speaking grandson is translating via phone), No Motor Deficits, Nonfocal/grossly intact, Cranial Nerves Intact and No Sensory Deficits; No Slurred Speech, Facial Droop, Tremors or Sedated
Psych: Calm
Laboratory Results
-
12/29/24 18:17
12/29/24 18:17
Laboratory Results
APTT 30.0 Sec (23.4-35.0) 12/29/24 18:17
Total Bilirubin 0.7 mg/dl (0.2-1.3) 12/29/24 18:17
AST 49 U/L (14-36) H 12/29/24 18:17
ALT 62 U/L (0-35) H 12/29/24 18:17
Alkaline Phosphatase 105 U/L (38-126) 12/29/24 18:17
Troponin I 0.034 ng/ml 12/29/24 18:17
Impression/Plan
-
Impression/plan:
Admit to telemetry
#Acute hypoxic respiratory insufficiency 2/2 Bilateral pulmonary embolism provoked�bladder cancer
#History of bilateral segmental pulmonary emboli August/2024 treated with Eliquis until 10/17/2024 when repeat chest showed almost complete resolution
92% RA, 95% 2 L nasal cannula
-Monitor pulse oximetry
-IV heparin drip
CT PE study:Findings compatible with recurrent bilateral pulmonary embolism, without significant right heart strain.
New small pericardial effusion.
Stable 1.2 cm right upper lobe ground glass nodule, small ground glass opacity medial left upper lobe
#Bladder cancer Dx 2021 with mets to liver/intrahepatic bile duct (October 2024 biopsy) on current chemotherapy
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
#Chronic transaminitis due to liver mets
#Status post cystoscopy with transurethral resection of bladder tumor intravesical gemcitabine ministration 10/16/2021
PowerPort placed 11/28/2024
Third round of chemotherapy today 12/29/2024 with [facility]
- Continue Zofran and prochlorperazine as needed
#Anxiety
Continue lorazepam
#HTN
Continue valsartan 80 mg daily
#GERD
Continue Protonix
#Acute on chronic anemia normocytic
Hgb 10.7 appears near baseline since October
#Solitary pulmonary nodule
#Vitamin D deficiency
#HLD
Continue atorvastatin
Full code
[2024-12-29] MEDS: HEPARIN 6700 UNITS IV (20:52)
[2024-12-29] MEDS: HEPARIN 25000 UNITS/250 ML IV (20:55)
[2024-12-29 22:37] VITALS: BP 129/85
[2024-12-30] MEDS: MIRALAX 17 GRAMS PO (00:33)
[2024-12-30 00:58] LABS: APTT > 200 Sec (23.4-35.0)
[2024-12-30 03:07] VITALS: BP 102/64
[2024-12-30 07:05] VITALS: BP 136/76
[2024-12-30 08:59] LABS: Hematocrit 35.1 % (37.0-47.0); Hemoglobin 11.0 g/dL (12.0-16.0); Mean Corp Hgb Conc. 31.3 g/dL (33.0-37.0); Mean Corpuscular Volume 83.4 fL (81.0-99.0); Nucleated Red Blood Cells % 0 %; Platelet Count 189 10^3/uL (130-400); Red Cell Dist. Width 17.4 % (11.5-14.5)
[2024-12-30 09:03] LABS: APTT 92.4 Sec (23.4-35.0)
--- NOTE | 2024-12-30 09:29 | W.PN.HOSP.TC ---
Today's Communication/Plan
-
may need home o2 arrangment
start on eliquis therapy
possible d/c later today
Assessment / Plan
Assessment / Plan
CT chest PE
Findings compatible with recurrent bilateral pulmonary embolism, without significant right heart strain.
New small pericardial effusion.
Additional stable findings, as detailed above.
1. Bilateral pulmonary embolism
Acute hypoxic respite insufficiency
History of recurrent pulmonary embolism
- Patient has been diagnosed for pulm embolism in September 18, was on Eliquis which patient took herself off in September after liver biopsy and CT chest PE showing near complete resolution of PE
- Presented with new onset of shortness of breath and acute hypoxic respite insufficiency
- Troponin normal, ProBNP ~ [address]245
- CT chest PE report as above. No signs of RV strain.
- Had a right lower extremity swelling on exam although patient hesitant to take venous Doppler. Will not change treatment plan if DVT present, can be reconsidered if patient agreeable
- Patient currently on heparin drip changed to Eliquis
- Home oxygen assessment ordered
2. History of metastatic bladder cancer to liver/intrahepatic duct
Status post cystoscopy with transurethral resection of bladder tumor intravesical gemcitabine ministration 10/16/2021
- [facility]
- Primary oncologist notified through [place] text, patient to follow-up in office
- Currently on chemotherapy
3. HLD
- maintain on lipitor
Chronic transaminitis
Hyponatremia
Generalized anxiety
Gastroesophageal reflux disease
Chronic anemia
Pulmonary nodule
Thyroid nodule
Eliquis
Full code
Anticipated Discharge: Within 24 hours
Subjective/Interval History
-
Date of Service: December 30, 2024
sitting comfortably in chair
on o2 through NC 2l
Denies chest pain/sob/palpitation
Objective Data
-
Labs:
Laboratory Results
12/30/24 12/30/24 12/30/24
00:17 08:43 15:15
WBC 5.4
Hgb 11.0 L
Hct 35.1 L
Plt Count 189
APTT > 200 H* 92.4 H Pending
Sodium Pending
Potassium Pending
Chloride Pending
Carbon Dioxide Pending
BUN Pending
Creatinine Pending
Glucose Pending
Calcium Pending
Total Bilirubin Pending
AST Pending
ALT Pending
Alkaline Phosphatase Pending
Vital Signs:
Vital Signs
Temp Pulse Resp BP Pulse Ox
97.9 F 77 16 136/76 100
12/30/24 07:05 12/30/24 07:05 12/30/24 07:05 12/30/24 07:05 12/30/24 07:05
I&O
12/29/24 12/30/24 12/31/24
06:59 06:59 06:59
Intake Total 960 / 960
Output Total 700 / 700
Balance 260 / 260
Review of Systems
-
Respiratory: Reports No Symptoms
Cardiac: Reports No Symptoms
Abdomen/GI: Reports No Symptoms
Physical Exam
-
General: Obese
HEENT: Oxygen (2l NC)
Respiratory: Clear to Auscultation
Cardiac: Regular Rhythm and S1/S2; Negative Murmur
Musculoskeletal: Edema, Right Lower Extrem
Neuro: Awake, Alert, Oriented and No Motor Deficits
[2024-12-30] MEDS: DULCOLAX 10 MG PO (09:44)
[2024-12-30] MEDS: ELIQUIS 10 MG PO (09:44)
[2024-12-30] MEDS: PROTONIX 40 MG PO (09:44)
[2024-12-30 09:53] LABS: ALT (SGPT) 58 U/L (0-35); AST (SGOT) 53 U/L (14-36); Albumin 3.5 g/dl (3.5-5.0); Alkaline Phosphatase 107 U/L (38-126); Blood Urea Nitrogen 17 mg/dl (7-17); Calcium 8.7 mg/dl (8.4-10.2); Carbon Dioxide 22 mmol/L (22-30); Chloride 110 mmol/L (98-107); Glucose 81 mg/dl (70-99); Potassium 4.3 mmol/L (3.5-5.1); Sodium 138 mmol/L (135-145); Total Protein 6.6 g/dl (6.3-8.2); eGFR > 60.00
--- NOTE | 2024-12-30 10:05 | PTCARENOTE ---
Hep gtt DCed, patient started on PO eliquis per MD order. L subq port flushed with hep lock, O2 removed for home O2 eval with resp therapist. Patient Algerian speaking, utility worker forge used to update patient on plan of care.
--- NOTE | 2024-12-30 10:44 | W.DCSUMMARY ---
Discharge Summary
Discharge Data
Date of Admission: 12/29/24
Date of Discharge: 12/30/24
-
Pending Results: No
Hospital Course
Discharging Physician : Dr Kurt Jaramillo
Disposition : Home
Primary care physician : Dr Saud Dennis
Principal Discharge diagnosis :
Bilateral pulmonary embolism
Possible right lower extremity deep venous thrombosis
Chronic Discharge diagnosis :
History of bladder cancer metastatic to liver
History of cystoscopy with transurethral resection of bladder tumor with intravesical gemcitabine administration
History of hematuria
History of bilateral obstructive uropathy
Chronic anemia
Gastroesophageal reflux disease
Essential hypertension
Generalized anxiety disorder
Hospital Course :
Patient is a 74-year-old female with above-mentioned past medical history came to ER with having new onset of shortness of breath for last few days. Patient underwent a CT chest PE which showed bilateral pulmonary embolism with no signs of RV
strain. Patient was vitally is stable with minimal need of oxygen through nasal cannula. Patient have a history of bladder cancer and currently getting chemotherapy with [facility], also had diagnosed for PE in August earlier this year
and was on DOAC. Patient had a follow-up CT chest PE which showed near complete resolution of PE. Patient had taken herself off the blood thinners at some point. Patient was resumed back on IV heparin drip followed by Eliquis at discharge. Of
note patient also had right lower extremity swelling which patient has noticed although patient hesitant to get lower extremity venous Doppler study. As this would not exchange specialist patient was planned to Eliquis therapy with rediscussion for
need of venous Doppler if any complication arises. Patient primary oncologist was notified about this admission. Patient is being discharged home at this point.
Important imaging findings :
None
Procedure findings :
None
Discharge Plan
-
Patient Disposition: Home (Routine Discharge)
Discharge Diagnosis/Procedures: Bilateral pulmonary embolism
Condition: Fair
Diet: Regular
Activity: As tolerated
Driving Restrictions: As prior to admission
Bathing Restrictions: OK to Shower
Referrals:
Saud Dennis MD [Family Provider, Internal Medicine] - in one week
Dian Cook DO [Active, Hematology / Oncology] - in one week
Prescriptions:
New
Eliquis 5 mg tablet
See Rx Instructions .ROUTE .COMPLEX Qty: 74 0RF
Rx Instructions:
Take 2 tablets twice daily for 7 days then
Take 1 tablet twice daily for maintenance
First month supply
Eliquis 5 mg tablet
5 mg PO BID Qty: 60 1RF
Rx Instructions:
2nd and 3rd month supply
Continued
acetaminophen 500 mg Tablet
500 mg PO Q6H PRN (Reason: mild pain)
lorazepam 0.5 mg Tablet
0.5 mg PO DAILY PRN (Reason: anxiety)
atorvastatin 10 mg Tablet
10 mg PO HS
ondansetron 8 mg Tablet,Disintegrating
8 mg PO Q8H PRN (Reason: nausea)
lidocaine-prilocaine 2.5-2.5 % Cream
1 applic TOPICAL ONCE PRN (Reason: prior to chemo )
Rx Instructions:
Over PowerPort before chemo
prochlorperazine maleate 10 mg Tablet
10 mg PO Q6H PRN (Reason: nausea)
pantoprazole 40 mg Tablet,Delayed Release (Dr/Ec)
40 mg PO DAILY
cholecalciferol (vitamin D3) [Vitamin D3] 50 mcg (2,000 unit) Tablet
50 mcg PO DAILY
valsartan 80 mg tablet
80 mg PO DAILY
Discharge Orders:
Discharge Patient (As Directed); Ordered 12/30/24
Ordered By: Kurt Jaramillo
Discharge Date and Time
Print Language: Monegasque
[2024-12-30 11:00] VITALS: BP 127/75
--- NOTE | 2024-12-30 11:43 | CM ---
CM following re: discharge planning.
Reviewed pt's chart, met with pt.
Pt is a 74 year old Hungarian speaking female, admitted with primary dx of Bilateral pulmonary embolism.
Pt reports she was born and grew up in [place], emig[place] 9 years ago and resided with family in [place]. Pt reports she lives with daughter in a 2SH, stays on 1st floor, has 2 supportive children, one year ago.
Emotional support offered and provided. Pt reports she ambulates with a walker, enrolled ion PDA waiver community based services, receives 14 hours of caregiver services per day 7 days per week, daughter is a caregiver. Pt expressed her desire to
return back home with resumptions of caregiver services and family support. Pt stated her daughter will transport home.
Discharge order noted. Pt is aware, expressed her agreement and she stated her daughter will transport home.
IMM reviewed, placed on chart, pt has a copy.
PCP: Terry Reilly
Pharmacy: [facility] [place]
D/C plan: home with resumptions of caregiver services and family support. Daughter to transport home.
[2024-12-30 12:50] LABS: Hepatitis C Antibody Negative (Negative)
[2024-12-30 15:10] VITALS: BP 123/73
--- NOTE | 2024-12-30 16:00 | PTCARENOTE ---
Patient discharged home, transported by daughter. Home O2 eval done by resp therapist prior to DC. Discharge instructions reviewed with daughter and patient via language line, both verbalized understanding. Daughter confirmed Eliquis script filled
by pharmacy prior to DC. Peripheral IV removed by this RN, Subq port de-accessed by IV nurse, tele pack removed by this RN. Patient dressed and belongings gathered with assistance of daughter. Patient taken down to daughter's car at main lobby via
staff escort and wheelchair.
== END 2024-12-30 15:53 | disposition home or self-care (01) | DRG 176 ==
LOC: 2 NORTH 21:03
PROVIDERS: Clinical Nurse Specialist Family Health; Physician Assistant; ADMITTING PHYSICIAN Hospitalist; ATTENDING PHYSICIAN Hospitalist; EMERGENCY PHYSICIAN Emergency Medicine; FAMILY PHYSICIAN Internal Medicine
DX: I26.99 Other pulmonary embolism without acute cor pulmonale (principal); C78.7 Secondary malignant neoplasm of liver and intrahepatic bile duct; I31.39 Other pericardial effusion (noninflammatory); E87.1 Hypo-osmolality and hyponatremia; E78.00 Pure hypercholesterolemia, unspecified; I10 Essential (primary) hypertension; K21.9 Gastro-esophageal reflux disease without esophagitis; R09.02 Hypoxemia; R06.89 Other abnormalities of breathing; C67.2 Malignant neoplasm of lateral wall of bladder; D63.8 Anemia in other chronic diseases classified elsewhere; F32.A Depression, unspecified; F41.9 Anxiety disorder, unspecified; R74.01 Elevation of levels of liver transaminase levels; G62.9 Polyneuropathy, unspecified; E04.1 Nontoxic single thyroid nodule; R91.1 Solitary pulmonary nodule; E55.9 Vitamin D deficiency, unspecified; Z60.3 Acculturation difficulty; Z86.711 Personal history of pulmonary embolism; Z92.21 Personal history of antineoplastic chemotherapy; Z88.1 Allergy status to other antibiotic agents; Z88.0 Allergy status to penicillin; Z90.710 Acquired absence of both cervix and uterus
CPT/HCPCS: 71046; 71275; 80053; 83880; 84439; 84443; 84481; 84484; 85025; 85730; 86803; 87070; 93005; 96365; 96366; 99285; Q9967

== ENCOUNTER → 2025-01-03 09:47 | Outpatient (REF) | payer MEDICARE, OTHER, SELFPAY ==
[2025-01-03 09:53] LABS: Hematocrit 35.8 % (37.0-47.0); Hemoglobin 11.4 g/dL (12.0-16.0); Mean Corp Hgb Conc. 31.8 g/dL (33.0-37.0); Mean Corpuscular Volume 82.5 fL (81.0-99.0); Platelet Count 227 10^3/uL (130-400); Red Cell Dist. Width 16.8 % (11.5-14.5)
[2025-01-03 11:07] LABS: ALT (SGPT) 32 U/L (0-35); AST (SGOT) 31 U/L (14-36); Albumin 3.7 g/dl (3.5-5.0); Alkaline Phosphatase 100 U/L (38-126); Blood Urea Nitrogen 11 mg/dl (7-17); Calcium 8.7 mg/dl (8.4-10.2); Carbon Dioxide 25 mmol/L (22-30); Chloride 105 mmol/L (98-107); Glucose 100 mg/dl (70-99); Potassium 4.2 mmol/L (3.5-5.1); Sodium 135 mmol/L (135-145); Total Protein 6.7 g/dl (6.3-8.2); eGFR > 60.00
== END ==
LOC: OIDL 09:47
PROVIDERS: ATTENDING PHYSICIAN Internal Medicine Hematology & Oncology
DX: C67.1 Malignant neoplasm of dome of bladder (principal); R91.1 Solitary pulmonary nodule; E55.9 Vitamin D deficiency, unspecified; C78.7 Secondary malignant neoplasm of liver and intrahepatic bile duct; I26.99 Other pulmonary embolism without acute cor pulmonale; G62.0 Drug-induced polyneuropathy
CPT/HCPCS: 80053; 85025

== ENCOUNTER → 2025-01-17 09:03 | Outpatient (REF) | payer MEDICARE, OTHER, SELFPAY ==
[2025-01-17 09:14] LABS: Hematocrit 36.8 % (37.0-47.0); Hemoglobin 11.4 g/dL (12.0-16.0); Mean Corp Hgb Conc. 31.0 g/dL (33.0-37.0); Mean Corpuscular Volume 84.8 fL (81.0-99.0); Platelet Count 282 10^3/uL (130-400); Red Cell Dist. Width 17.9 % (11.5-14.5)
[2025-01-17 10:32] LABS: ALT (SGPT) 37 U/L (0-35); AST (SGOT) 49 U/L (14-36); Albumin 3.6 g/dl (3.5-5.0); Alkaline Phosphatase 85 U/L (38-126); Blood Urea Nitrogen 11 mg/dl (7-17); Calcium 9.1 mg/dl (8.4-10.2); Carbon Dioxide 24 mmol/L (22-30); Chloride 106 mmol/L (98-107); Glucose 112 mg/dl (70-99); Potassium 4.3 mmol/L (3.5-5.1); Sodium 138 mmol/L (135-145); Total Protein 6.8 g/dl (6.3-8.2); eGFR > 60.00
[2025-01-17 10:47] LABS: Free T3 4.27 pg/ml (2.77-5.27)
[2025-01-17 11:01] LABS: TSH 1.77 uIU/ml (0.47-4.68)
== END ==
LOC: OIDL 09:03
PROVIDERS: ATTENDING PHYSICIAN Internal Medicine Hematology & Oncology
DX: C67.1 Malignant neoplasm of dome of bladder (principal); R91.1 Solitary pulmonary nodule; E55.9 Vitamin D deficiency, unspecified; C78.7 Secondary malignant neoplasm of liver and intrahepatic bile duct; I26.99 Other pulmonary embolism without acute cor pulmonale; G62.0 Drug-induced polyneuropathy; R53.82 Chronic fatigue, unspecified
CPT/HCPCS: 80053; 84443; 84481; 85025

== ENCOUNTER → 2025-01-24 12:11 | Outpatient (REF) | payer MEDICARE, OTHER, SELFPAY ==
[2025-01-24 11:16] LABS: Hematocrit 37.7 % (37.0-47.0); Hemoglobin 12.0 g/dL (12.0-16.0); Mean Corp Hgb Conc. 31.8 g/dL (33.0-37.0); Mean Corpuscular Volume 83.4 fL (81.0-99.0); Platelet Count 231 10^3/uL (130-400); Red Cell Dist. Width 18.1 % (11.5-14.5)
[2025-01-24 12:05] LABS: ALT (SGPT) 26 U/L (0-35); AST (SGOT) 36 U/L (14-36); Albumin 3.8 g/dl (3.5-5.0); Alkaline Phosphatase 91 U/L (38-126); Blood Urea Nitrogen 14 mg/dl (7-17); Calcium 8.8 mg/dl (8.4-10.2); Carbon Dioxide 25 mmol/L (22-30); Chloride 105 mmol/L (98-107); Glucose 99 mg/dl (70-99); Potassium 4.2 mmol/L (3.5-5.1); Sodium 136 mmol/L (135-145); Total Protein 7.1 g/dl (6.3-8.2); eGFR > 60.00
== END ==
LOC: OIDL 12:11
PROVIDERS: ATTENDING PHYSICIAN Internal Medicine Hematology & Oncology
DX: C67.1 Malignant neoplasm of dome of bladder (principal); R91.1 Solitary pulmonary nodule; E55.9 Vitamin D deficiency, unspecified; C78.7 Secondary malignant neoplasm of liver and intrahepatic bile duct; I26.99 Other pulmonary embolism without acute cor pulmonale; G62.0 Drug-induced polyneuropathy
CPT/HCPCS: 80053; 85025

== ENCOUNTER → 2025-02-02 08:14 | Outpatient (REF) | payer MEDICARE, OTHER, SELFPAY | LOC: RAD 08:14 | PROVIDERS: ATTENDING PHYSICIAN Internal Medicine Hematology & Oncology; FAMILY PHYSICIAN Internal Medicine | DX: C67.1 Malignant neoplasm of dome of bladder (principal); R91.1 Solitary pulmonary nodule; E55.9 Vitamin D deficiency, unspecified; C78.7 Secondary malignant neoplasm of liver and intrahepatic bile duct; I26.99 Other pulmonary embolism without acute cor pulmonale; G62.0 Drug-induced polyneuropathy | CPT/HCPCS: 71260; 74177; Q9967 ==

== ENCOUNTER → 2025-02-07 12:11 | Outpatient (REF) | payer MEDICARE, OTHER, SELFPAY ==
[2025-02-07 11:39] LABS: Hematocrit 37.4 % (37.0-47.0); Hemoglobin 11.8 g/dL (12.0-16.0); Mean Corp Hgb Conc. 31.6 g/dL (33.0-37.0); Mean Corpuscular Volume 85.0 fL (81.0-99.0); Platelet Count 273 10^3/uL (130-400); Red Cell Dist. Width 18.9 % (11.5-14.5)
[2025-02-07 12:18] LABS: ALT (SGPT) 36 U/L (0-35); AST (SGOT) 33 U/L (14-36); Albumin 3.8 g/dl (3.5-5.0); Alkaline Phosphatase 79 U/L (38-126); Blood Urea Nitrogen 16 mg/dl (7-17); Calcium 8.8 mg/dl (8.4-10.2); Carbon Dioxide 25 mmol/L (22-30); Chloride 105 mmol/L (98-107); Glucose 98 mg/dl (70-99); Potassium 4.5 mmol/L (3.5-5.1); Sodium 135 mmol/L (135-145); Total Protein 6.7 g/dl (6.3-8.2); eGFR > 60.00
== END ==
LOC: OIDL 12:11
PROVIDERS: ATTENDING PHYSICIAN Internal Medicine Hematology & Oncology
DX: C67.1 Malignant neoplasm of dome of bladder (principal); R91.1 Solitary pulmonary nodule; E55.9 Vitamin D deficiency, unspecified; C78.7 Secondary malignant neoplasm of liver and intrahepatic bile duct; I26.99 Other pulmonary embolism without acute cor pulmonale; G62.0 Drug-induced polyneuropathy
CPT/HCPCS: 80053; 85025

== ENCOUNTER → 2025-02-14 10:35 | Outpatient (REF) | payer MEDICARE, OTHER, SELFPAY ==
[2025-02-14 10:42] LABS: Hematocrit 38.4 % (37.0-47.0); Hemoglobin 12.1 g/dL (12.0-16.0); Mean Corp Hgb Conc. 31.5 g/dL (33.0-37.0); Mean Corpuscular Volume 85.0 fL (81.0-99.0); Platelet Count 224 10^3/uL (130-400); Red Cell Dist. Width 19.5 % (11.5-14.5)
[2025-02-14 11:54] LABS: ALT (SGPT) 30 U/L (0-35); AST (SGOT) 35 U/L (14-36); Albumin 3.9 g/dl (3.5-5.0); Alkaline Phosphatase 87 U/L (38-126); Blood Urea Nitrogen 12 mg/dl (7-17); Calcium 9.0 mg/dl (8.4-10.2); Carbon Dioxide 25 mmol/L (22-30); Chloride 106 mmol/L (98-107); Glucose 98 mg/dl (70-99); Potassium 4.3 mmol/L (3.5-5.1); Sodium 135 mmol/L (135-145); Total Protein 7.0 g/dl (6.3-8.2); eGFR > 60.00
== END ==
LOC: OIDL 10:35
PROVIDERS: ATTENDING PHYSICIAN Internal Medicine Hematology & Oncology
DX: C67.1 Malignant neoplasm of dome of bladder (principal); R91.1 Solitary pulmonary nodule; E55.9 Vitamin D deficiency, unspecified; C78.7 Secondary malignant neoplasm of liver and intrahepatic bile duct; I26.99 Other pulmonary embolism without acute cor pulmonale; G62.0 Drug-induced polyneuropathy
CPT/HCPCS: 80053; 85025

== ENCOUNTER → 2025-02-28 10:41 | Outpatient (REF) | payer MEDICARE, OTHER, SELFPAY ==
[2025-02-28 11:08] LABS: Hematocrit 36.1 % (37.0-47.0); Hemoglobin 11.4 g/dL (12.0-16.0); Mean Corp Hgb Conc. 31.6 g/dL (33.0-37.0); Mean Corpuscular Volume 85.7 fL (81.0-99.0); Platelet Count 275 10^3/uL (130-400); Red Cell Dist. Width 20.2 % (11.5-14.5)
[2025-02-28 11:43] LABS: ALT (SGPT) 34 U/L (0-35); AST (SGOT) 42 U/L (14-36); Albumin 3.8 g/dl (3.5-5.0); Alkaline Phosphatase 80 U/L (38-126); Blood Urea Nitrogen 11 mg/dl (7-17); Calcium 9.0 mg/dl (8.4-10.2); Carbon Dioxide 24 mmol/L (22-30); Chloride 105 mmol/L (98-107); Glucose 99 mg/dl (70-99); Potassium 4.2 mmol/L (3.5-5.1); Sodium 136 mmol/L (135-145); Total Protein 7.1 g/dl (6.3-8.2); eGFR > 60.00
[2025-02-28 12:14] LABS: TSH 1.44 uIU/ml (0.47-4.68)
== END ==
LOC: CLAB 10:41
PROVIDERS: ATTENDING PHYSICIAN Internal Medicine Hematology & Oncology
DX: C67.1 Malignant neoplasm of dome of bladder (principal); R91.1 Solitary pulmonary nodule; E55.9 Vitamin D deficiency, unspecified; C78.7 Secondary malignant neoplasm of liver and intrahepatic bile duct; I26.99 Other pulmonary embolism without acute cor pulmonale; G62.0 Drug-induced polyneuropathy; R53.82 Chronic fatigue, unspecified
CPT/HCPCS: 80053; 84439; 84443; 85025

== ENCOUNTER → 2025-03-07 10:47 | Outpatient (REF) | payer MEDICARE, OTHER, SELFPAY ==
[2025-03-07 10:59] LABS: Hematocrit 40.9 % (37.0-47.0); Hemoglobin 13.2 g/dL (12.0-16.0); Mean Corp Hgb Conc. 32.3 g/dL (33.0-37.0); Mean Corpuscular Volume 84.2 fL (81.0-99.0); Platelet Count 249 10^3/uL (130-400); Red Cell Dist. Width 20.3 % (11.5-14.5)
== END ==
LOC: OIDL 10:47
PROVIDERS: ATTENDING PHYSICIAN Internal Medicine Hematology & Oncology
DX: C67.1 Malignant neoplasm of dome of bladder (principal)
CPT/HCPCS: 36415; 85025

== ENCOUNTER 2025-04-05 09:02 | Outpatient (RCR) | payer MEDICARE, OTHER, SELFPAY ==
[2025-03-29 09:15] VITALS: BP 135/82
[2025-03-29 09:53] LABS: Hematocrit 38.5 % (37.0-47.0); Hemoglobin 12.0 g/dL (12.0-16.0); Mean Corp Hgb Conc. 31.2 g/dL (33.0-37.0); Mean Corpuscular Volume 88.7 fL (81.0-99.0); Nucleated Red Blood Cells % 0 %; Platelet Count 243 10^3/uL (130-400); Red Cell Dist. Width 20.6 % (11.5-14.5)
[2025-03-29 10:40] LABS: ALT (SGPT) 28 U/L (0-35); AST (SGOT) 37 U/L (14-36); Albumin 3.8 g/dl (3.5-5.0); Alkaline Phosphatase 83 U/L (38-126); Blood Urea Nitrogen 15 mg/dl (7-17); Calcium 8.8 mg/dl (8.4-10.2); Carbon Dioxide 26 mmol/L (22-30); Chloride 104 mmol/L (98-107); Glucose 90 mg/dl (70-99); Potassium 4.4 mmol/L (3.5-5.1); Sodium 134 mmol/L (135-145); Total Protein 6.9 g/dl (6.3-8.2); eGFR > 60.00
[2025-04-05 09:15] VITALS: BP 123/82
[2025-04-05 11:14] LABS: Hematocrit 40.4 % (37.0-47.0); Hemoglobin 12.7 g/dL (12.0-16.0); Mean Corp Hgb Conc. 31.4 g/dL (33.0-37.0); Mean Corpuscular Volume 88.6 fL (81.0-99.0); Nucleated Red Blood Cells % 0 %; Platelet Count 224 10^3/uL (130-400); Red Cell Dist. Width 19.9 % (11.5-14.5)
[2025-04-05 11:51] LABS: ALT (SGPT) 26 U/L (0-35); AST (SGOT) 36 U/L (14-36); Albumin 4.0 g/dl (3.5-5.0); Alkaline Phosphatase 105 U/L (38-126); Blood Urea Nitrogen 12 mg/dl (7-17); Calcium 9.0 mg/dl (8.4-10.2); Carbon Dioxide 26 mmol/L (22-30); Chloride 105 mmol/L (98-107); Glucose 86 mg/dl (70-99); Potassium 4.3 mmol/L (3.5-5.1); Sodium 136 mmol/L (135-145); Total Protein 7.1 g/dl (6.3-8.2); eGFR > 60.00
[2025-04-18 10:51] LABS: Hematocrit 38.2 % (37.0-47.0); Hemoglobin 12.2 g/dL (12.0-16.0); Mean Corp Hgb Conc. 31.9 g/dL (33.0-37.0); Mean Corpuscular Volume 87.6 fL (81.0-99.0); Platelet Count 232 10^3/uL (130-400); Red Cell Dist. Width 19.2 % (11.5-14.5)
[2025-04-18 12:17] LABS: ALT (SGPT) 24 U/L (0-35); AST (SGOT) 32 U/L (14-36); Albumin 3.9 g/dl (3.5-5.0); Alkaline Phosphatase 85 U/L (38-126); Blood Urea Nitrogen 16 mg/dl (7-17); Calcium 8.9 mg/dl (8.4-10.2); Carbon Dioxide 26 mmol/L (22-30); Chloride 105 mmol/L (98-107); Glucose 88 mg/dl (70-99); Potassium 4.7 mmol/L (3.5-5.1); Sodium 138 mmol/L (135-145); Total Protein 7.0 g/dl (6.3-8.2); eGFR > 60.00
[2025-04-18 12:32] LABS: TSH 0.96 uIU/ml (0.47-4.68)
[2025-04-26 10:45] LABS: Hematocrit 39.8 % (37.0-47.0); Hemoglobin 12.6 g/dL (12.0-16.0); Mean Corp Hgb Conc. 31.7 g/dL (33.0-37.0); Mean Corpuscular Volume 86.9 fL (81.0-99.0); Platelet Count 228 10^3/uL (130-400); Red Cell Dist. Width 18.3 % (11.5-14.5)
[2025-04-26 11:45] LABS: ALT (SGPT) 23 U/L (0-35); AST (SGOT) 32 U/L (14-36); Albumin 4.1 g/dl (3.5-5.0); Alkaline Phosphatase 96 U/L (38-126); Blood Urea Nitrogen 19 mg/dl (7-17); Calcium 9.0 mg/dl (8.4-10.2); Carbon Dioxide 27 mmol/L (22-30); Chloride 103 mmol/L (98-107); Glucose 91 mg/dl (70-99); Potassium 4.5 mmol/L (3.5-5.1); Sodium 138 mmol/L (135-145); Total Protein 7.0 g/dl (6.3-8.2); eGFR > 60.00
== END 2025-04-26 23:59 | disposition home or self-care (01) ==
LOC: OID 09:02
PROVIDERS: ATTENDING PHYSICIAN Internal Medicine Hematology & Oncology
DX: C67.1 Malignant neoplasm of dome of bladder (principal); R91.1 Solitary pulmonary nodule; C78.7 Secondary malignant neoplasm of liver and intrahepatic bile duct; E55.9 Vitamin D deficiency, unspecified; I26.99 Other pulmonary embolism without acute cor pulmonale; G62.0 Drug-induced polyneuropathy; R53.83 Other fatigue
CPT/HCPCS: 36415; 36591; 80053; 84439; 84443; 85025